=== PATIENT | male | born 1950 | race Caucasian/White ===

== ENCOUNTER 2024-04-17 06:23 | Inpatient (IN) | payer MEDICARE, BC ==
[~2024-04-17] VITALS: Ht 172.7 cm; Wt 77.3 kg
[2024-04-17] MEDS ORDERED: ANESTHESIA TRAY IN PYXIS 1 EA TRAY MC ONE (06:41)
[2024-04-17] MEDS ORDERED: VANCOMYCIN 1 GM VIAL ONE (06:42)
[2024-04-17] MEDS ORDERED: dexaMETHasone SOD PHOSPHATE 1 ML ONE (06:42)
[2024-04-17] MEDS ORDERED: LIDOCAINE 2%-EPI 1:100,000 30 ML VIAL ONE (06:42)
[2024-04-17] MEDS ORDERED: OXYMETAZOLINE HCL NASAL SPRAY 30 ML BOTTLE NS ONE (06:42)
[2024-04-17] MEDS ORDERED: FENTANYL PF 250MCG/5ML AMPUL ONE (07:16)
[2024-04-17] MEDS ORDERED: ROCURONIUM BROMIDE 50 MG/5 ML ONE (07:16)
[2024-04-17] MEDS ORDERED: LABETALOL 20 MG/4 ML VIAL ONE (08:04)
[2024-04-17 12:00] VITALS: BP 113/63; TEMP 97.9; O2SAT 95
[2024-04-17] MEDS ORDERED: ACETAMINOPHEN 325 MG TABLET PO PRN (12:00)
[2024-04-17] MEDS ORDERED: AMLO-213 PO (12:38)
[2024-04-17] MEDS ORDERED: ROSU10TA29 PO (12:38)
[2024-04-17] MEDS ORDERED: ATEN50TA PO (12:38)
[2024-04-17] MEDS ORDERED: HYDR25TA4 PO (12:38)
[2024-04-17] MEDS: IV NS 0.9% 1,000 ML IV PRN (12:42)
[2024-04-17] MEDS ORDERED: ONDANSETRON HCL/PF 4 MG/2 ML VIAL IVP PRN (13:00)
[2024-04-17] MEDS ORDERED: ZOLPIDEM TARTRATE 5 MG TABLET PO PRN (13:00)
[2024-04-17] MEDS ORDERED: MAGNESIUM HYDROXIDE 30 ML UDC PO PRN (13:00)
[2024-04-17] MEDS ORDERED: MAG HYDROX/AL HYDROX/SIMETH 30 ML UDC PO PRN (13:00)
[2024-04-17] MEDS ORDERED: Z GUARD REMEDY 4 OZ OINT TP PRN (13:00)
[2024-04-17] MEDS: HYDROMORPHONE 1 MG/1 ML DISP.SYRIN IV PRN (13:25)
[2024-04-17] MEDS ORDERED: DEXTROSE 50%-WATER 50 ML DISP.SYRIN IV PRN (13:30)
[2024-04-17] MEDS: ONDANSETRON HCL/PF 4 MG/2 ML VIAL IVP PRN (15:05)
[2024-04-17 16:00] VITALS: BP 146/81; TEMP 98.1; O2SAT 98
[2024-04-17] MEDS: VANCOMYCIN 1 GM in IV D5W 250ml IV SCH (17:31)
[2024-04-17] MEDS: BLOOD SUGAR DIAGNOSTIC 1 EACH STRIP VI SCH (17:31)
[2024-04-17] MEDS: ACETAMINOPHEN 325 MG TABLET PO PRN (17:56)
[2024-04-17 20:09] VITALS: BP 110/63; TEMP 98.6; O2SAT 97
[2024-04-17] MEDS: *INSULIN REGULAR(HUMULIN R)HUM 100 UNIT/ML VIAL SQ PRN (22:31)
[2024-04-18 05:22] VITALS: O2SAT 98
[2024-04-18] MEDS: INSULIN REGULAR, HUMAN 100 UNIT/ML 3 ML VIAL SQ PRN (06:25)
[2024-04-18 07:23] LABS: HEMATOCRIT 41 % (39-51); HEMOGLOBIN 14.1 g/dL (13.5-17.5); LYMPHOCYTES # (AUTO) 0.6 K/uL (0.8-4.8); LYMPHOCYTES % (AUTO) 3.6 % (20.0-44.0); MEAN CORPUSCULAR HEMOGLOBIN 32 PG (26.0-33.0); MEAN CORPUSCULAR HGB CONC 35 g/dl (31.0-36.0); MEAN CORPUSCULAR VOLUME 91 fL (80-96); MONOCYTES # (AUTO) 0.9 K/uL (0.1-1.30); MONOCYTES % (AUTO) 5.3 % (2.0-12.0); NEUTROPHILS # (AUTO) 15.9 K/uL (1.8-8.9); NEUTROPHILS % (AUTO) 91.1 % (43.0-81.0); PLATELET COUNT (AUTO) 187 K/uL (150-450); RED BLOOD CELL COUNT(AUTO) 4.44 MIL/uL (4.5-6.0); RED CELL DISTRIBUTION WIDTH 13.2 % (11.5-15.0); WHITE BLOOD COUNT (AUTO) 17.5 K/uL (4.3-11.0)
[2024-04-18 08:00] VITALS: BP 107/66; TEMP 98.4; O2SAT 96
[2024-04-18 08:06] LABS: CALCIUM, SERUM 8.5 mg/dL (8.5-10.1); CREATININE 1.2 mg/dL (0.6-1.3); MAGNESIUM 2.1 mg/dL (1.8-2.4); PHOSPHORUS 2.8 mg/dL (2.5-4.9)
[2024-04-18 08:59] VITALS: BP 107/66
[2024-04-18] MEDS: ATENOLOL 50 MG TABLET PO SCH (08:59)
[2024-04-18] MEDS: AMLODIPINE BESYLATE 10 MG TABLET PO SCH (08:59)
[2024-04-18] MEDS: ATORVASTATIN 10 MG TABLET PO SCH (09:00)
[2024-04-18] MEDS: HYDROCHLOROTHIAZIDE 25 MG TABLET PO SCH (09:00)
[2024-04-18] MEDS ORDERED: HYDROCODONE/APAP 5/325MG TABLET PO PRN (09:30)
== END 2024-04-18 14:00 | disposition home or self-care (01) | DRG 141 ==
LOC: DS 06:23 → MED 11:43
PROVIDERS: ADMIT Student in an Organized Health Care Education/Training Program; ATTEND Student in an Organized Health Care Education/Training Program
PROC: 0NSR04Z Reposition Maxilla with Internal Fixation Device, Open Approach (ICD-10-PCS; principal; 2024-04-17)
PROC: 0NST04Z Reposition Right Mandible with Internal Fixation Device, Open Approach (ICD-10-PCS; 2024-04-17)
PROC: 0NUR07Z Supplement Maxilla with Autologous Tissue Substitute, Open Approach (ICD-10-PCS; 2024-04-17)
PROC: 0NUT07Z Supplement Right Mandible with Autologous Tissue Substitute, Open Approach (ICD-10-PCS; 2024-04-17)
PROC: 0NBV0ZZ Excision of Left Mandible, Open Approach (ICD-10-PCS; 2024-04-17)
PROC: 0NSV04Z Reposition Left Mandible with Internal Fixation Device, Open Approach (ICD-10-PCS; 2024-04-17)
PROC: 0NUR0JZ Supplement Maxilla with Synthetic Substitute, Open Approach (ICD-10-PCS; 2024-04-17)
PROC: 0NUT0JZ Supplement Right Mandible with Synthetic Substitute, Open Approach (ICD-10-PCS; 2024-04-17)
DX: S02.40DB Maxillary fracture, left side, initial encounter for open fracture (principal); T81.83XA Persistent postprocedural fistula, initial encounter; S02.40CB Maxillary fracture, right side, initial encounter for open fracture; S02.69XB Fracture of mandible of other specified site, initial encounter for open fracture; M27.2 Inflammatory conditions of jaws; D72.829 Elevated white blood cell count, unspecified; E11.65 Type 2 diabetes mellitus with hyperglycemia; E78.5 Hyperlipidemia, unspecified; E86.0 Dehydration; I10 Essential (primary) hypertension; Z88.0 Allergy status to penicillin; D16.4 Benign neoplasm of bones of skull and face; J32.0 Chronic maxillary sinusitis; X58.XXXA Exposure to other specified factors, initial encounter; Y93.9 Activity, unspecified; Y92.009 Unspecified place in unspecified non-institutional (private) residence as the place of occurrence of the external cause; Z91.199 Patient's noncompliance with other medical treatment and regimen due to unspecified reason
CPT/HCPCS: 36415; 80048-TC; 82962-TC; 83735-TC; 84100-TC; 85025-TC; 94799-TC; A4223; C1713; C1781; G0378; J0461; J0690; J1100; J1170; J1815; J2405; J2704; J3010; J3370; J3490; J7030; J7060

== ENCOUNTER 2024-08-21 06:52 | Inpatient (IN) | payer MEDICARE, BC ==
[~2024-08-21 06:52] MED LIST: AMLO-213 PO; ATEN50TA PO; HYDR25TA4 PO; ROSU10TA29 PO
[2024-08-21] MEDS ORDERED: LIDOCAINE 2%-EPI 1:100,000 30 ML VIAL ONE (07:09)
[2024-08-21] MEDS ORDERED: ANESTHESIA TRAY IN PYXIS 1 EA TRAY MC ONE (07:09)
[2024-08-21] MEDS ORDERED: dexaMETHasone SOD PHOSPHATE 2 ML ONE (07:10)
[2024-08-21] MEDS ORDERED: VANCOMYCIN 1 GM VIAL ONE (07:10)
[2024-08-21] MEDS ORDERED: FENTANYL PF 250MCG/5ML AMPUL ONE (07:12)
[2024-08-21] MEDS ORDERED: ROCURONIUM BROMIDE 50 MG/5 ML ONE (07:13)
[2024-08-21] MEDS ORDERED: SEVOFLURANE 250 ML BOTTLE IH ONE (07:42)
[2024-08-21] MEDS ORDERED: LABETALOL HCL IV 100MG VIAL ONE (08:25)
[2024-08-21] MEDS ORDERED: ACETAMINOPHEN 325 MG TABLET PO PRN (11:30)
[2024-08-21] MEDS ORDERED: ONDANSETRON HCL/PF 4 MG/2 ML VIAL IV PRN (11:30)
[2024-08-21] MEDS ORDERED: HYDROMORPHONE 1 MG/1 ML DISP.SYRIN IV PRN (11:30)
[2024-08-21] MEDS: IV NS 0.9% 1,000 ML IV PRN (12:58)
[2024-08-21] MEDS ORDERED: GABA300C PO (14:27)
[2024-08-21] MEDS ORDERED: FAMO20TA80 PO (14:27)
[2024-08-21] MEDS ORDERED: OMEP40CA21 PO (14:27)
[2024-08-21] MEDS ORDERED: METF-440 PO (14:27)
[2024-08-21 16:00] VITALS: BP 102/60; TEMP 99; O2SAT 94
[2024-08-21] MEDS: METFORMIN 500 MG TABLET PO SCH (17:24)
[2024-08-21 20:00] VITALS: BP 107/66; TEMP 98.6; O2SAT 94
[2024-08-21] MEDS: VANCOMYCIN 1 GM in IV D5W 250ml IV SCH (20:07)
[2024-08-21] MEDS: GABAPENTIN 300 MG CAPSULE PO SCH (21:59)
[2024-08-22] MEDS: HYDROCHLOROTHIAZIDE 25 MG TABLET PO SCH (09:00)
[2024-08-22] MEDS: AMLODIPINE BESYLATE 10 MG TABLET PO SCH (10:06)
[2024-08-22] MEDS: ATORVASTATIN 40 MG TABLET PO SCH (10:06)
[2024-08-22 10:07] VITALS: BP 131/77
[2024-08-22] MEDS: ATENOLOL 50 MG TABLET PO SCH (10:07)
== END 2024-08-22 13:10 | disposition home or self-care (01) | DRG 496 ==
LOC: DS 06:52 → MED 06:56
PROVIDERS: ADMIT Internal Medicine; ATTEND Internal Medicine
PROC: 0NPW04Z Removal of Internal Fixation Device from Facial Bone, Open Approach (ICD-10-PCS; principal; 2024-08-21)
PROC: 0NPW0JZ Removal of Synthetic Substitute from Facial Bone, Open Approach (ICD-10-PCS; 2024-08-21)
PROC: 0N5R0ZZ Destruction of Maxilla, Open Approach (ICD-10-PCS; 2024-08-21)
PROC: 0NUR07Z Supplement Maxilla with Autologous Tissue Substitute, Open Approach (ICD-10-PCS; 2024-08-21)
PROC: 0NSR04Z Reposition Maxilla with Internal Fixation Device, Open Approach (ICD-10-PCS; 2024-08-21)
PROC: 0N5T0ZZ Destruction of Right Mandible, Open Approach (ICD-10-PCS; 2024-08-21)
PROC: 0NST04Z Reposition Right Mandible with Internal Fixation Device, Open Approach (ICD-10-PCS; 2024-08-21)
PROC: 0NC Head and Facial Bones, Extirpation (ICD-10-PCS; 2024-08-21)
DX: T84.69XA Infection and inflammatory reaction due to internal fixation device of other site, initial encounter (principal); M87.9 Osteonecrosis, unspecified; S02.609A Fracture of mandible, unspecified, initial encounter for closed fracture; M89.38 Hypertrophy of bone, other site; Y83.8 Other surgical procedures as the cause of abnormal reaction of the patient, or of later complication, without mention of misadventure at the time of the procedure; Y92.009 Unspecified place in unspecified non-institutional (private) residence as the place of occurrence of the external cause; M85.68 Other cyst of bone, other site; E11.9 Type 2 diabetes mellitus without complications; E78.5 Hyperlipidemia, unspecified; I10 Essential (primary) hypertension; Z88.0 Allergy status to penicillin; X58.XXXA Exposure to other specified factors, initial encounter
CPT/HCPCS: 82962-TC; 88305-TC; 88311-TC; A4217; A4223; C1713; G0378; J0461; J0690; J1100; J2704; J3010; J3370; J3490; J7030; J7060

== ENCOUNTER 2025-01-01 08:36 | Inpatient (IN) | payer MEDICARE, BC ==
[~2025-01-01] VITALS: Ht 172.7 cm; Wt 69.9 kg
[~2025-01-01 08:36] MED LIST changes: +FAMO20TA80 PO; +GABA300C PO; -HYDR25TA4 PO; +METF-440 PO; +OMEP40CA21 PO
[2025-01-01] MEDS ORDERED: LIDOCAINE 2%-EPI 1:100,000 30 ML VIAL ONE (10:40)
[2025-01-01] MEDS ORDERED: dexaMETHasone SOD PHOSPHATE 0 ML ONE (10:40)
[2025-01-01] MEDS ORDERED: OXYMETAZOLINE HCL NASAL SPRAY 30 ML BOTTLE NS ONE (10:41)
[2025-01-01] MEDS ORDERED: VANCOMYCIN 1 GM VIAL ONE (10:41)
[2025-01-01] MEDS ORDERED: HYDROMORPHONE 1 MG/1 ML DISP.SYRIN IV PRN (14:00)
[2025-01-01] MEDS ORDERED: ONDANSETRON HCL/PF 4 MG/2 ML VIAL IV PRN (14:00)
[2025-01-01] MEDS: IV NS 0.9% 1,000 ML IV PRN (14:28)
[2025-01-01] MEDS ORDERED: HYDR25TA4 PO (14:28)
[2025-01-01 15:40] VITALS: BP 119/65; TEMP 98.2; O2SAT 97
[2025-01-01 16:00] VITALS: BP 114/70; TEMP 98.4; O2SAT 94
[2025-01-01] MEDS: ACETAMINOPHEN 325 MG TABLET PO PRN (17:23)
[2025-01-01] MEDS ORDERED: DEXTROSE 50%-WATER 50 ML DISP.SYRIN IV PRN (19:00)
[2025-01-01 20:00] VITALS: BP_SYST 124; BP_SYST 159; BP_DIAS 65; BP_DIAS 70; TEMP 98.1; TEMP 99; O2SAT 95; O2SAT 97
[2025-01-01] MEDS: VANCOMYCIN 1 GM in IV D5W 250ml IV SCH (21:36)
[2025-01-01] MEDS: BLOOD SUGAR DIAGNOSTIC 1 EACH STRIP IN SCH (21:56)
[2025-01-01] MEDS: INSULIN REGULAR, HUMAN 100 UNIT/ML 3 ML VIAL SQ PRN (22:01)
[2025-01-02 07:00] VITALS: BP 126/70; TEMP 97.7; O2SAT 94
== END 2025-01-02 16:20 | disposition home or self-care (01) | DRG 908 ==
LOC: DS 08:36 → MED 13:32
PROC: 0N5T0ZZ Destruction of Right Mandible, Open Approach (ICD-10-PCS; 2025-01-01)
PROC: 0NBV0ZX Excision of Left Mandible, Open Approach, Diagnostic (ICD-10-PCS; 2025-01-01)
PROC: 0NPW04Z Removal of Internal Fixation Device from Facial Bone, Open Approach (ICD-10-PCS; principal; 2025-01-01 09:55)
DX: T86.831 Bone graft failure (principal); S02.40CK Maxillary fracture, right side, subsequent encounter for fracture with nonunion; T84.69XA Infection and inflammatory reaction due to internal fixation device of other site, initial encounter; S02.40DK Maxillary fracture, left side, subsequent encounter for fracture with nonunion; Y83.8 Other surgical procedures as the cause of abnormal reaction of the patient, or of later complication, without mention of misadventure at the time of the procedure; Y92.9 Unspecified place or not applicable; K13.70 Unspecified lesions of oral mucosa; X58.XXXD Exposure to other specified factors, subsequent encounter; Z88.0 Allergy status to penicillin; Y83.2 Surgical operation with anastomosis, bypass or graft as the cause of abnormal reaction of the patient, or of later complication, without mention of misadventure at the time of the procedure; I10 Essential (primary) hypertension; E11.69 Type 2 diabetes mellitus with other specified complication; E78.5 Hyperlipidemia, unspecified; M89.38 Hypertrophy of bone, other site; J32.0 Chronic maxillary sinusitis
CPT/HCPCS: 36415; 80053-TC; 82962-TC; 85025-TC; 85610-TC; 87102-TC; 88300-TC; 88305-TC; 88311-TC; 88312-TC; A4223; G0378; J0461; J0690; J1100; J1815; J2704; J3370; J3490; J7030; J7060